=== PATIENT | female | born 1990 | race African-American/Black ===

== ENCOUNTER 2019-03-10 09:40 | Inpatient (IN) | payer BC ==
[~2019-03-10 09:40] MED LIST: Docusate 100 MG CAP PO PRN
[2019-03-10 10:16] VITALS: BMI 32.2
[2019-03-10] MEDS ORDERED: Acetaminophen 500 MG TAB PO PRN (10:22)
[2019-03-10] MEDS ORDERED: Ondansetron PF 4 MG/2 ML Vial IVP PRN (10:22)
[2019-03-10] MEDS ORDERED: Zolpidem Tartrate 5 MG TAB PO PRN (10:22)
[2019-03-10] MEDS ORDERED: Promethazine HCl 25 MG/ML VIAL IM PRN (10:22)
[2019-03-10] MEDS: Betamet Acet/Betamet Na Ph 30 MG/5 ML VIAL IM SCH (11:22)
[2019-03-10 11:35] LABS: Hemoglobin 11.1 g/dL (12.0-16.0); Mean Corpuscular HGB CONC 33.4 g/dL (32.0-36.0); Mean Corpuscular Hemoglobin 26.3 pg (27.0-31.0); Mean Corpuscular Volume 78.8 fL (78.0-98.0); Mean Platelet Volume 8.7 fL (7.4-10.4); Platelet Count 185 thou/uL (130-400); RBC Distribution Width 13.3 % (11.5-14.5); Red Blood Cell (RBC) Count 4.21 mill/uL (4.20-5.40); White Blood Cell (WBC) Count 5.9 thou/uL (4.8-10.8)
[2019-03-10] MEDS: Lactated Ringer's 1,000 ML IV SCH ×2 (11:35→19:38)
--- NOTE | 2019-03-10 11:45 | ULT ---
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 FINDINGS: number: feng lie: Vertex Maternal cervix: 5 cm. The endocervical canal is dilated, filled with amniotic fluid, measuring 1 cm in caliber.. Placenta: Posterior fundal Amniotic fluid volume: ROBERTO = 7cm heart rate: 152 bpm The following anatomy is visualized, with no evidence of anomalies: Head, lateral ventricles, four-chamber heart, stomach, cord insertion, bladder, and three-vessel cord biometry: Biparietal diameter (BPD): 7.8 cm 31 w 2 d Head circumference (HC): 28.0 cm 30 w 4 d Abdominal circumference (AC): 24.2 cm 28 w 3 d Femur length (FL): 5.7 cm 30 w 0 d Average ultrasound age (AUA): 30 w 1 d Estimated date of delivery (BIENVENIDO): 05/18/2019 Estimated weight (EFW): 1383 g +/- 205 g IMPRESSION: 1) Live 3rd trimester intrauterine gestation. 2) Estimated gestational age of 30 weeks, 1 days 3) cephalic lie. 4) dilated cervical canal with funneling of amniotic fluid.
--- NOTE | 2019-03-10 17:01 | PDOC.LDHP ---
Labor and Delivery H&P Chief complaint: other (cervical dilation) HPI: 28yo at 28w6d by LMP that presented to clinic with complaints of copious passage of mucus per vagina for last 1 month. Occ painful contractions, a few times/day. No VB LOF. No urinary or GI sx. Good FM. Current gestational age (weeks): 28 Due date: 05/27/19 Dating criteria: last menstrual period Grav: 3 Para: 2 OB History Details: no prior complications during Current complications: none Abnormal US findings: No (ceph, ROBERTO 7, EFW 1383gm) Past Medical History: hx of HSV Current medications: pre-tiffanie vitamins Previous surgical history: none Allergies/Adverse Reactions: Allergies Allergy/AdvReac Type Severity Reaction Status Date / Time cefaclor [From Ceclor] Allergy Mild Rash Verified 01/03/17 08:18 Social history: none - Physical Exam Vital signs reviewed and normal: yes General: NAD Heart: RRR Lungs: CTAB Abdomen: gravid Extremeties: no edema FHT: category 1 [place] contractions every: none - Vaginal Exam cm dilated: 2 Effacement: 50% Station: -3 (SSE: copious mucus from cervix, no ROM) - OB Labs Blood type: B RH: negative Antibody Screen: negative HIV: negative RPR: negative HEPSAg: negative 1 hour GCT: unknown (pending) GBS: unknown Urine drug screen: negative Rubella: immune - Assessment Advanced cervical dilation at 28w6d - Plan -: No evidence of PTL on toco. Admitted for observation for continued dilation and administration of steroids. Will start HSV ppx. Advised pt on decr activity at home once DC. FHT Cat 1 and S=D on sono. GBS culture sent. s/p Rhogam and tdap in my office yesterday.
--- NOTE | 2019-03-11 06:26 | PDOC.EVN ---
Event Note - Event Note Event Note: HD 1 29 weeks today DX: PCD (other children born at term, ) S> doing well, occ cramping with ambulation but no CTX, no LOF, no VB. Good FM O. Vitals reviewed...VSS afebrile. Celestone sdministered SCDs not in use as ambulated to bathroom and OOB to chair Last sono with position VTX A/P: 29 weeks PCD about 2cm... GBS culture in lab Steroids as in use conservative care
[2019-03-11] MEDS: Betamet Acet/Betamet Na Ph 30 MG/5 ML VIAL IM SCH (10:57)
--- NOTE | 2019-03-11 11:25 | PDOC.LDPN ---
Labor & Delivery Progress Note - Subjective Subjective: no concerns (had a few ctx yesterday, none today, no VB LOF, not passing mucus anymore. Good FM) - Objective Vital signs reviewed and normal: yes General: NAD Uterine fundus: non tender Dilation: 2 Effacement: 50% Station: -2 (very posterior) FHT: category 1 [place] contractions every: none -: s/p BMZ x 2, ok to DC home on bedrest, FU end of next week in clinic. PTL precautions given.
[2019-03-11 13:13] VITALS: BP 107/58; TEMP 98.2
== END 2019-03-11 13:00 | disposition home health service (06) | DRG 833 ==
LOC: L&D/OP 09:40 → L&D 11:15 → 3SW 21:21
PROVIDERS: ADMIT Student in an Organized Health Care Education/Training Program; ATTEND Student in an Organized Health Care Education/Training Program
DX: O60.03 Preterm labor without delivery, third trimester (principal); Z3A.28 28 weeks gestation of pregnancy
CPT/HCPCS: 36415; 59025; 76805; 85027; 86850; 86900; 86901; 87077; 87081; 99285; J0702

== ENCOUNTER 2019-03-16 13:25 | Outpatient (CLI) | payer BC | END 2019-03-16 13:26 | disposition home or self-care (01) | LOC: EKG 13:25 | PROVIDERS: ATTEND Student in an Organized Health Care Education/Training Program | DX: O99.413 Diseases of the circulatory system complicating pregnancy, third trimester (principal); Z3A.29 29 weeks gestation of pregnancy | CPT/HCPCS: 93005; 93010 ==

== ENCOUNTER 2019-05-06 16:54 | Day surgery (SDC) | payer BC ==
[2019-05-06 17:29] VITALS: BP 129/76; TEMP 98.9; BMI 34.0
[2019-05-06] MEDS ORDERED: hydrALAZINE 20 MG/ML VIAL SLOW IVP PRN (17:46)
--- NOTE | 2019-05-06 17:49 | PDOC.LDHP ---
Labor and Delivery H&P HPI: Patient of Dr Vergara Time: 1745 CC: CTX L&D Triage Patient is a 28 yo with no HX PTB at 37 weeks here for CTX after sex this AM. No VB, no LOF, good FM. HX migraines in past. Review of Systems: Complete ROS completed and as per HPI Current gestational age (weeks): 37 (o Days) Due date: 05/27/19 Dating criteria: last menstrual period Grav: 3 Para: 2 OB History Details: at term x 2 One with threatened PTL but delivery at 38 weeks Current complications: other (remote HX migraines) Abnormal US findings: No Past Medical History: None. Past [employer] HX: Hx HSV but no outbreaks. On valtrex now Current medications: pre-tiffanie vitamins Previous surgical history: none Allergies/Adverse Reactions: Allergies Allergy/AdvReac Type Severity Reaction Status Date / Time cefaclor [From Ceclor] Allergy Mild Rash Verified 01/03/17 08:18 - Physical Exam Vital signs reviewed and normal: yes (129/76 89s afebrile) General: NAD Heart: RRR Lungs: CTAB Abdomen: gravid Extremeties: no edema FHT: category 1 [place] contractions every: irregular - Vaginal Exam cm dilated: 2 (posterior) Effacement: 75% Station: -1 - Assessment Threatened labor at early term...2cm. S/P recent intercourse - Plan Plan: observation in L&D (2 hour L&D obs. Offer stadol and phneregan. recheck in 2 hours)
[2019-05-06] MEDS ORDERED: Promethazine HCl 25 MG/ML VIAL IM/IV PRN (17:52)
[2019-05-06] MEDS ORDERED: Butorphanol Tartrate 1 MG/ML VIAL IM PRN (17:52)
--- NOTE | 2019-05-06 19:13 | PDOC.EVN ---
Event Note - Event Note Event Note: Recheck: No cervical progress Vitals stable OK for DC home F/U Wednesday
== END 2019-05-06 19:27 | disposition home or self-care (01) ==
LOC: L&D/OP 16:54
PROVIDERS: ATTEND Student in an Organized Health Care Education/Training Program
DX: O47.1 False labor at or after 37 completed weeks of gestation (principal); O99.353 Diseases of the nervous system complicating pregnancy, third trimester; G43.909 Migraine, unspecified, not intractable, without status migrainosus; Z88.1 Allergy status to other antibiotic agents; Z79.899 Other long term (current) drug therapy; Z3A.37 37 weeks gestation of pregnancy
CPT/HCPCS: 99283

== ENCOUNTER 2019-05-14 05:12 | Inpatient (IN) | payer BC ==
[2019-05-14] MEDS ORDERED: NS / Oxytocin 40 units/1000ml 1,000 ML ONE (05:20)
[2019-05-14] MEDS ORDERED: Oxytocin 10 UNITS/ML VIAL ONE (05:26)
[2019-05-14] MEDS ORDERED: Milk Of Magnesia 30 ML UDCUP PO PRN (05:31)
[2019-05-14] MEDS ORDERED: Bisacodyl 10 MG SUPP PR PRN (05:31)
[2019-05-14] MEDS ORDERED: Zolpidem Tartrate 5 MG TAB PO PRN (05:31)
[2019-05-14] MEDS ORDERED: Ondansetron PF 4 MG/2 ML Vial IVP PRN (05:31)
[2019-05-14] MEDS ORDERED: Promethazine HCl 25 MG/ML VIAL IM PRN (05:31)
[2019-05-14] MEDS ORDERED: Adacel (T-DAP) 0.5 ML SYRINGE IM ONE (05:31)
[2019-05-14] MEDS ORDERED: Misoprostol 200 MCG TAB VAG PRN (05:31)
--- NOTE | 2019-05-14 05:38 | PDOC.OPDEL ---
OB Operative/Delivery Note Delivery Dr/Surgeon: Manjula Pre-Delivery Diagnosis: active labor Procedure/Post Delivery Dx: spontaneous vaginal delivery Anesthesia: none - Additional Findings/Plan Placenta delivered: spontaneous Repaired Obstetrical Laceration: none Estimated blood loss: 300cc Compilations/Other Findings: Rapid of viable male. Apgars 9/9. Intact perineum. Pitocin 20 units IM given. To recover in L&D. Post delivery plan: routine recovery
[2019-05-14 05:42] VITALS: BMI 34.2
--- NOTE | 2019-05-14 05:44 | PDOC.EVN ---
Event Note - Event Note Event Note: HX. reviewed. +GBS- no time for ABX. h/o hSV- no recent lesions or h/o prodrome. Recovering in L&D.
[2019-05-14] MEDS: Ibuprofen 800 MG TAB PO SCH ×3 (06:10→20:36)
[2019-05-14] MEDS: Acetaminophen/Codeine 30-300mg Tablet PO PRN ×4 (07:00→21:12)
[2019-05-14 07:31] LABS: Hemoglobin 11.4 g/dL (12.0-16.0); Mean Corpuscular Hemoglobin 24.7 pg (27.0-31.0); Mean Platelet Volume 9.9 fL (7.4-10.4); Platelet Count 187 thou/uL (130-400); RBC Distribution Width 16.1 % (11.5-14.5); Red Blood Cell (RBC) Count 4.61 mill/uL (4.20-5.40); White Blood Cell (WBC) Count 6.4 thou/uL (4.8-10.8)
[2019-05-14 08:01] LABS: HBSAg Index 0.27 S/CO (0-0.99); Hep B Surf Ag Non-Reactive S/CO (NonReactive); Syphilis Antibody Nonreactive (Nonreactive); Syphilis Antibody Index 0.04 S/CO (<1.00 Non-Reactive)
[2019-05-14] MEDS: Prenatal Vitamin 1 TAB PO SCH (17:51)
[2019-05-14] MEDS: Docusate Calcium (SURFAK) 240 MG CAP PO SCH ×2 (17:51→20:36)
[2019-05-15] MEDS: Acetaminophen/Codeine 30-300mg Tablet PO PRN ×5 (01:12→23:05)
[2019-05-15] MEDS: Ibuprofen 800 MG TAB PO SCH ×3 (05:12→21:02)
[2019-05-15] MEDS: Docusate Calcium (SURFAK) 240 MG CAP PO SCH ×2 (08:01→21:01)
[2019-05-15] MEDS: Prenatal Vitamin 1 TAB PO SCH (08:01)
[2019-05-15] MEDS ORDERED: Lanolin Ointment 7 GM TUBE TOP PRN (12:32)
[2019-05-16] MEDS: Ibuprofen 800 MG TAB PO SCH ×2 (05:29→13:52)
[2019-05-16 08:19] VITALS: BP 106/62; TEMP 98.2
[2019-05-16] MEDS: Prenatal Vitamin 1 TAB PO SCH (09:24)
[2019-05-16] MEDS: Acetaminophen/Codeine 30-300mg Tablet PO PRN (09:24)
[2019-05-16] MEDS: Docusate Calcium (SURFAK) 240 MG CAP PO SCH (09:24)
--- NOTE | 2019-05-16 10:32 | PDOC.PP ---
Post Progress Note Post Day #: 2 PO intake tolerated: yes Flatus: yes Ambulation: yes Vital Signs (12 hours) Temp Pulse Resp BP Pulse Ox 05/16/19 09:27 86 05/16/19 08:00 98.2 F 120 H 15 106/62 96 05/15/19 23:05 98.1 F 78 18 119/58 L Weight Weight 225 lb - Physical Examination General: NAD Respiratory: non-labored breathing Abdominal: no distention, appropriately TTP Fundus firm & at: umb-2 Skin: no rash Neurological: no gross focal deficits Psychiatric: normal affect Result Diagrams: 05/14/19 07:14 Additional Labs: Post Labs Blood Type B NEGATIVE 05/14/19 07:14 Hep Bs Antigen Non-Reactive S/CO (NonReactive) 05/14/19 07:14 - Assessment/Plan PPD2 s/p TSVD VSSAF Doing well, pain controlled, lochia < menses Rh neg s/p rhogam, RImm DC home FU 6w
--- NOTE | 2019-05-16 12:20 | ULT ---
ULTRASOUND DOPPLER DUPLEX VENOUS LEFT LOWER EXTREMITY: DATE: 05/16/2019 HISTORY: 28-year-old female with pain and edema of left lower extremity. TECHNIQUE: Grayscale, color-flow, and spectral analysis, of major veins of left lower extremity. FINDINGS: There is demonstration of blood flow with normal compressibility, of the left common femoral, profund a femoral, greater saphenous, femoral, popliteal, and posterior tibial, veins. IMPRESSION: Negative. No deep venous thrombosis of left lower extremity.
== END 2019-05-16 14:30 | disposition home or self-care (01) | DRG 807 ==
LOC: L&D/OP 05:12 → L&D 05:30 → 3SW 08:09
PROVIDERS: ADMIT Student in an Organized Health Care Education/Training Program; ATTEND Student in an Organized Health Care Education/Training Program
PROC: 10E0XZZ Delivery of Products of Conception, External Approach (ICD-10-PCS; principal; 2019-05-14)
DX: O62.3 Precipitate labor (principal); Z37.0 Single live birth; O99.824 Streptococcus B carrier state complicating childbirth; Z3A.38 38 weeks gestation of pregnancy
CPT/HCPCS: 36415; 85027; 85461; 86780; 86850; 86870; 86900; 86901; 87340; 90384; 96372; 99285; J2590

== ENCOUNTER 2019-05-20 06:34 | Emergency (ER) | payer BC ==
[2019-05-20 07:36] LABS: #Basophils 0.1 thou/uL (0.0-0.2); #Eosinphils 0.1 thou/uL (0.0-0.7); #Lymphocytes 1.4 thou/uL (1.20-3.40); #Monocytes 0.4 thou/uL (0.11-0.59); #Neutrophils 4.2 thou/uL (1.40-6.50); %Basophils 0.9 % (0.0-1.0); %Eosinophils 2.1 % (0.0-10.0); %Lymphocytes 22.2 % (21.0-51.0); %Monocytes 6.8 % (0.0-10.0); Hemoglobin 11.4 g/dL (12.0-16.0); Mean Corpuscular HGB CONC 31.3 g/dL (32.0-36.0); Mean Corpuscular Hemoglobin 23.5 pg (27.0-31.0); Mean Corpuscular Volume 74.9 fL (78.0-98.0); Mean Platelet Volume 7.3 fL (7.4-10.4); Platelet Count 250 thou/uL (130-400); RBC Distribution Width 17.1 % (11.5-14.5); Red Blood Cell (RBC) Count 4.87 mill/uL (4.20-5.40); White Blood Cell (WBC) Count 6.2 thou/uL (4.8-10.8)
[2019-05-20 07:37] LABS: Anisocytosis SLIGHT = 6-15 cells (100X) (0-5/hpf); MDiff Complete? YES; Platelet Morphology Comment Appears Adequate
[2019-05-20 07:38] LABS: ALT (SGPT) 39 U/L (8-55); AST (SGOT) 22 U/L (5-34); Albumin 3.5 g/dL (3.5-5.0); Alkaline Phosphatase 89 U/L (40-150); Anion Gap 15 mmol/L (10-20); BUN (Urea Nitrogen) 14 mg/dL (7.0-18.7); Bilirubin, Total 0.3 mg/dL (0.2-1.2); Calc. Creatinine Clearance 0 mL/min (70-130); Calcium 8.8 mg/dL (7.8-10.44); Carbon Dioxide 20 mmol/L (22-29); Chloride 109 mmol/L (98-107); Estimated GFR-MDRD Greater than 90; Globulin 3.4 g/dL (2.4-3.5); Glucose 79 mg/dL (70-105); Lipase 13 U/L (8-78); Potassium 3.9 mmol/L (3.5-5.1); Protein, Total 6.9 g/dL (6.0-8.3); Sodium 140 mmol/L (136-145)
[2019-05-20] MEDS ORDERED: Meropenem 1 GM VIAL ONE (08:15)
[2019-05-20] MEDS ORDERED: Doxycycline 100 MG CAP ONE (08:15)
[2019-05-20] MEDS ORDERED: Sodium Chloride 0.9% 100 ML ONE (08:17)
--- NOTE | 2019-05-20 08:44 | ULT ---
TRANSABDOMINAL ULTRASOUND OF PELVIS: Date: 05/20/19 INDICATION; 6 days with pelvic pain. FINDINGS: Uterus is mildly enlarged, but consistent with status. Endometrial stripe is mildly promin ent and echogenic, measuring 1.7 cm thickness. Maternal ovaries appear unremarkable. Color Doppler with spectral analysis demonstrates blood flow to both ovaries. No free fluid. IMPRESSION: Normal size uterus. The endometrial stripe is echogenic and mildly prominent, but probably within normal range for status. Exam is otherwise unremarkable. POS: JAMES
[2019-05-20 08:45] LABS: Bilirubin Negative (Negative); Blood, Urine Moderate (Negative); Clarity Clear (Clear); Glucose, Urine (Dipstick) Negative (Negative); Leukocyte Small (Negative); Nitrite Negative (Negative); Protein, Urine (Dipstick) Negative (Neg-Trace); Urobilinogen 0.2 mg/dL (Less than 2)
[2019-05-20 08:56] LABS: Bacteria/HPF 1+ HPF (None Seen); RBC/HPF 0-3 HPF (0-3); Squamous Epithelial 0-3 HPF (0-3); WBC/HPF 0-3 HPF (0-3)
[2019-05-24 00:37] LABS: Chlamydia by PCR Not Detected (NotDetected); GC by PCR Not Detected (NotDetected)
== END 2019-05-20 09:31 | disposition home or self-care (01) ==
LOC: SCSER 06:34
DX: O99.89 Other specified diseases and conditions complicating pregnancy, childbirth and the puerperium (principal); R10.2 Pelvic and perineal pain
CPT/HCPCS: 36415; 76856; 80053; 81003; 81015; 83605; 83690; 85025; 87040; 87480; 87491; 87510; 87591; 87660; 93976; 96365; J2185; J3490